=== PATIENT | male | born 1975 | race Caucasian/White ===

== ENCOUNTER 2021-06-09 11:54 | Emergency (ER) | payer OTHER ==
[~2021-06-09] VITALS: Ht 172.7 cm; Wt 81.6 kg
[~2021-06-09 11:54] MED LIST: XANAX XR0.5 MG; ZOLOFT25 MG PO; ZOLOFT50 MG
[2021-06-09] MEDS ORDERED: ZITHROMAX500 MG PO (18:05)
[2021-06-09] MEDS ORDERED: OSEL75CA PO (18:05)
== END 2021-06-09 18:08 | disposition home or self-care (01) ==
LOC: ER 11:54
DX: K52.89 Other specified noninfective gastroenteritis and colitis (principal); Z20.822 Contact with and (suspected) exposure to COVID-19